=== PATIENT | female | born 1965 | race Caucasian/White ===

== ENCOUNTER → 2016-07-23 | Outpatient (CLI) | payer BC ==
--- NOTE | 2016-07-24 07:55 | MM ---
Reason for exam: screening (asymptomatic). Last mammogram was performed 1 year and 1 month ago. History: Patient is postmenopausal and has history of other cancer at age 33. Family history of breast cancer in grandmother at age 60. Retro-pectoral saline implants in both breasts, 1998. Taking estrogen for 9 years beginning at age 34. Physical Findings: A clinical breast exam by your physician is recommended on an annual basis and results should be correlated with mammographic findings. MG Screening Mammo Implant/CAD Bilateral CC, MLO, and ID view(s) were taken. Prior study comparison: June 28, 2015, bilateral MG screening mammo implant/CAD. May 28, 2014, bilateral MG diagnostic mammo w CAD [facility]. There are scattered fibroglandular densities. Implants are intact. No significant changes when compared with prior studies. ASSESSMENT: Negative, BI-RAD 1 RECOMMENDATION: Routine screening mammogram of both breasts.
== END | disposition home or self-care (01) ==
LOC: RADMAMWWP 09:28
PROVIDERS: ATTEND Obstetrics & Gynecology
DX: Z12.31 Encounter for screening mammogram for malignant neoplasm of breast (principal)

== ENCOUNTER → 2017-03-12 | Outpatient (CLI) | payer BC ==
--- NOTE | 2017-03-12 16:22 | CT ---
EXAMINATION TYPE: CT chest w con DATE OF EXAM: 03/12/2017 COMPARISON: 12/27/2009 HISTORY: Chest pain xfew months. 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 Prior on 12.27.09. CT DLP: 246.6 mGycm, Automated exposure control for dose reduction was used. CONTRAST: Performed injected with 100ml mL of Omnipaque 300. TECHNIQUE: Axial images were obtained at 5 mm thick sections. Reconstructed images are reviewed on [email or web address] computer in the coronal plane. FINDINGS: Portion of the thyroid visualized is normal. No suspicious lung nodules or focal infiltrates are present. Bilateral breast prostheses are present. No enlarged mediastinal or hilar adenopathy is evident. No axillary adenopathy is evident. Subcarin al and upper abdominal adenopathy is not evident. The ascending aorta diameter at the level of the ma in pulmonary artery is 2.9 cm. The main pulmonary artery diameter at the bifurcation is 1.[address] sections are obtained through the upper abdomen. Gallstones may be present. Small hiatal h ernia is present. IMPRESSIONS: 1. No suspicious adenopathy present within the [id number]. 2. Suspected cholelithiasis.
== END | disposition home or self-care (01) ==
LOC: RADCTMAIN 12:13
PROVIDERS: ATTEND Internal Medicine Hematology & Oncology
DX: Z08 Encounter for follow-up examination after completed treatment for malignant neoplasm (principal); Z85.72 Personal history of non-Hodgkin lymphomas; Z88.5 Allergy status to narcotic agent
CPT/HCPCS: 71260; Q9967

== ENCOUNTER → 2017-09-13 | Outpatient (CLI) | payer BC ==
--- NOTE | 2017-09-17 08:20 | MM ---
Reason for exam: screening (asymptomatic). Last mammogram was performed 1 year and 2 months ago. History: Patient is postmenopausal and has history of other cancer at age 33. Family history of breast cancer in grandmother at age 60. Retro-pectoral saline implants in both breasts, 1998. Taking estrogen for 9 years beginning at age 34. Physical Findings: A clinical breast exam by your physician is recommended on an annual basis and results should be correlated with mammographic findings. MG Screening Mammo Implant/CAD Bilateral CC, MLO, and ID view(s) were taken. Prior study comparison: July 23, 2016, bilateral MG screening mammo implant/CAD. June 28, 2015, bilateral MG screening mammo implant/CAD. There are scattered fibroglandular densities. Bilateral retropectoral silicone implants. No significant changes when compared with prior studies. ASSESSMENT: Negative, BI-RAD 1 RECOMMENDATION: Routine screening mammogram of both breasts in 1 year.
== END | disposition home or self-care (01) ==
LOC: RADMAMWWP 08:31
PROVIDERS: ATTEND Obstetrics & Gynecology
DX: Z12.31 Encounter for screening mammogram for malignant neoplasm of breast (principal); Z98.82 Breast implant status
CPT/HCPCS: 77067

== ENCOUNTER → 2018-10-28 | Outpatient (CLI) | payer BC ==
--- NOTE | 2018-10-29 14:04 | MM ---
Reason for exam: screening (asymptomatic). Last mammogram was performed 1 year and 1 month ago. History: Patient is postmenopausal and has history of other cancer at age 33. Family history of breast cancer in grandmother at age 60. Retro-pectoral saline implants in both breasts, 1998. Taking estrogen for 9 years beginning at age 34. Physical Findings: A clinical breast exam by your physician is recommended on an annual basis and results should be correlated with mammographic findings. MG Screening Mammo Implant/CAD Bilateral CC, MLO, and ID view(s) were taken. Prior study comparison: September 13, 2017, bilateral MG screening mammo implant/CAD. July 23, 2016, bilateral MG screening mammo implant/CAD. There are scattered fibroglandular densities. No suspicious abnormality. Bilateral prepectoral saline implants. No significant changes when compared with prior studies. ASSESSMENT: Negative, BI-RAD 1 RECOMMENDATION: Routine screening mammogram of both breasts in 1 year.
== END | disposition home or self-care (01) ==
LOC: RADMAMWWP 09:27
PROVIDERS: ATTEND Obstetrics & Gynecology
DX: Z12.31 Encounter for screening mammogram for malignant neoplasm of breast (principal); Z98.82 Breast implant status
CPT/HCPCS: 77067

== ENCOUNTER → 2019-10-30 | Outpatient (CLI) | payer BC ==
--- NOTE | 2019-11-03 08:43 | MM ---
Reason for exam: screening (asymptomatic). Last mammogram was performed 1 year ago. History: Patient is postmenopausal and has history of other cancer at age 33. Family history of breast cancer in grandmother at age 60. Retro-pectoral saline implants in both breasts, 1998. Taking estrogen for 9 years beginning at age 34. Physical Findings: A clinical breast exam by your physician is recommended on an annual basis and results should be correlated with mammographic findings. MG Screening Mammo Implant/CAD Bilateral CC, MLO, and ID view(s) were taken. Prior study comparison: October 28, 2018, bilateral MG screening mammo implant/CAD. September 13, 2017, bilateral MG screening mammo implant/CAD. Retropectoral implants. No significant changes when compared with prior studies. ASSESSMENT: Negative, BI-RAD 1 RECOMMENDATION: Routine screening mammogram of both breasts in 1 year.
== END | disposition home or self-care (01) ==
LOC: RADMAMWWP 14:52
PROVIDERS: ATTEND Obstetrics & Gynecology
DX: Z12.31 Encounter for screening mammogram for malignant neoplasm of breast (principal); Z80.3 Family history of malignant neoplasm of breast; Z98.82 Breast implant status
CPT/HCPCS: 77067

== ENCOUNTER → 2021-01-04 | Outpatient (CLI) | payer BC ==
--- NOTE | 2021-01-05 09:55 | MM ---
Reason for exam: screening (asymptomatic). Last mammogram was performed 1 year and 2 months ago. History: Patient is postmenopausal and has history of other cancer at age 33. Family history of breast cancer in grandmother at age 60. Retro-pectoral saline implants in both breasts, 1998. Taking estrogen for 9 years beginning at age 34. Physical Findings: A clinical breast exam by your physician is recommended on an annual basis and results should be correlated with mammographic findings. MG Screening Mammo Implant/CAD Bilateral CC, MLO, and ID view(s) were taken. Prior study comparison: October 30, 2019, bilateral MG screening mammo implant/CAD. October 28, 2018, bilateral MG screening mammo implant/CAD. There are scattered fibroglandular densities. There is no discrete abnormality. Bilateral implants are intact. No significant changes when compared with prior studies. ASSESSMENT: Negative, BI-RAD 1 RECOMMENDATION: Routine screening mammogram of both breasts in 1 year.
== END | disposition home or self-care (01) ==
LOC: RADMAMWWP 08:14
PROVIDERS: ATTEND Obstetrics & Gynecology
DX: Z12.31 Encounter for screening mammogram for malignant neoplasm of breast (principal)
CPT/HCPCS: 77067

== ENCOUNTER → 2021-06-03 | Outpatient (CLI) | payer BC ==
--- NOTE | 2021-06-04 08:04 | MR ---
EXAMINATION TYPE: MR liver wo/w con DATE OF EXAM: 06/03/2021 COMPARISON: CT chest abdomen and pelvis December 27, 2009. Outside abnormal ultrasound and/or report a re not available for direct comparison HISTORY: RUQ abdominal pain, abnormal ultrasound findings on diagnostic imaging, gallbladder removed 05-05-21. CONTRAST: Standard multiplanar, multisequence MRI departmental protocol images were obtained without contrast a nd with 8 mL intravenous Gadavist gadolinium contrast. Imaging performed of the abdomen focusing on the liver. FINDINGS: Liver: Liver shows diffuse signal dropout consistent with diffuse fatty infiltration. Liver size norm al. Gallbladder surgically absent. Susceptibility Artifact from cholecystectomy clips noted at the le sesar of the gallbladder fossa. No intrahepatic or extra hepatic biliary dilatation. Left hepatic lobe shows 1.5 x 1.0 cm benign thin-walled cyst. Remainder of liver shows no worrisome solid or cystic mas s. Other: Bilateral breast implants are redemonstrated. Lung bases remain clear. Spleen and pancreas lori ear within normal limits. No adrenal masses. No concerning renal mass or hydronephrosis seen bilatera lly. No suspicious greater than 1 cm abdominal adenopathy. No abnormal bowel dilatation. No intra-abd ominal ascites. No AAA. Osseous structures are intact. IMPRESSION: Diffuse fatty infiltration of liver. Incidental 1.5 cm benign-appearing thin-walled cyst left hepatic lobe. No biliary dilatation. No suspicious acute findings. If outside report and/or ultr asound study become available for comparison an addendum may be issued.
== END | disposition home or self-care (01) ==
LOC: RADMRIMAIN 11:15
PROVIDERS: ATTEND Nurse Practitioner Family
DX: R93.5 Abnormal findings on diagnostic imaging of other abdominal regions, including retroperitoneum (principal)
CPT/HCPCS: 74183; A9585

== ENCOUNTER → 2021-08-11 | Outpatient (CLI) | payer BC ==
--- NOTE | 2021-08-15 06:04 | PE ---
EXAMINATION TYPE: PET CT fusion skull to thigh DATE OF EXAM: 08/11/2021 COMPARISON: Low-dose lung screening CT June 20, 2021 and older studies. HISTORY: Abnormal CT, solitary pulmonary nodule TECHNIQUE: Following the intravenous administration of 10.5 mCi of F-18 FDG, whole body images are p erformed from the skull base to the midthigh. Images are reviewed on the computer in the coronal, ax ial, and sagittal planes. Reconstructed rotating images are created on independent workstation and r eviewed on the computer. A localization and attenuation correction CT is performed in conjunction w ith the PET scan. Blood glucose level equals 82. SCAN: Initial Scan FINDINGS: SKULL BASE AND NECK: No areas of abnormal hypermetabolic uptake. CHEST, MEDIASTINUM, AND HILAR REGION: Redemonstration of symmetric masslike thickening along the medi al aspect of the bilateral lung apices axial image 59, no abnormal hypermetabolic uptake at this leve l. Findings consistent with postinflammatory scarring. Finding was present back in 2017 CT. No areas of abnormal hypermetabolic uptake. ABDOMEN AND PELVIS: Nonspecific uptake in the right colon. No areas of abnormal hypermetabolic uptake . OSSEOUS STRUCTURES: No areas of abnormal hypermetabolic uptake OTHER CT: Bilateral breast implants are redemonstrated. Cholecystectomy clips are redemonstrated. Liver is diffusely low dense consistent with fatty infiltra tion. Lobulated contour to the uterus suggests underlying intrauterine fibroids. Few diverticula in t he sigmoid colon are present. Facet arthropathy lower lumbar spine is seen. IMPRESSION: No areas of abnormal hypermetabolic uptake to suggest malignancy.
== END | disposition home or self-care (01) ==
LOC: RADPETMAIN 13:35
PROVIDERS: ATTEND Nurse Practitioner Family
DX: R93.89 Abnormal findings on diagnostic imaging of other specified body structures (principal); R91.8 Other nonspecific abnormal finding of lung field
CPT/HCPCS: 78815; A9552

== ENCOUNTER → 2022-01-24 | Outpatient (CLI) | payer BC ==
--- NOTE | 2022-01-25 09:52 | MM ---
Reason for Exam: Screening (asymptomatic). Last mammogram was performed 1 year(s) and 1 month(s) ago. Patient History: Menarche at age 9. First Full-Term at age 21. Right ovary removed at age 25. Postmenopausal. Patient has history of breast feeding. Currently using Estrogen, beginning at age 34 for 9 years. 1999, Bilateral Implants. Maternal grandmother had breast cancer, age 60. Risk Values: Rebecca 5 year model risk: 1.3%. NCI Lifetime model risk: 7.6%. Prior Study Comparison: 06/28/2015 Bilateral Screening Mammogram, [facility]. 07/23/2016 Bilateral Screening Mammogram, [facility]. 09/13/2017 Bilateral Screening Mammogram, [facility]. 10/28/2018 Bilateral Screening Mammogram, [facility]. 10/30/2019 Bilateral Screening Mammogram, [facility]. 01/04/2021 Bilateral Screening Mammogram, [facility]. Tissue Density: There are scattered fibroglandular densities. Findings: Analyzed By CAD. There is no suspicious group of microcalcifications or new suspicious mass in either breast. Bilateral breast implants appear intact. No significant change from prior exams. Overall Assessment: Benign, BI-RAD 2 Management: Screening Mammogram of both breasts in 1 year. A clinical breast exam by your physician is recommended on an annual basis and results should be correlated with mammographic findings. Electronically signed and approved by: Irving Good D.O.
== END | disposition home or self-care (01) ==
LOC: RADMAMWWP 10:51
PROVIDERS: ATTEND Obstetrics & Gynecology
DX: Z12.31 Encounter for screening mammogram for malignant neoplasm of breast (principal); Z78.0 Asymptomatic menopausal state; Z80.3 Family history of malignant neoplasm of breast; Z90.721 Acquired absence of ovaries, unilateral
CPT/HCPCS: 77067

== ENCOUNTER → 2023-02-18 | Outpatient (CLI) | payer BC ==
--- NOTE | 2023-02-19 20:42 | MM ---
Reason for Exam: Screening (asymptomatic). Last mammogram was performed 1 year(s) and 1 month(s) ago. Patient History: Menarche at age 9. First Full-Term at age 21. Right ovary removed at age 25. Postmenopausal. Patient has history of breast feeding. Currently using Estrogen, beginning at age 34 for 9 years. Currently using Progesterone, starting at age 34. 1999, Bilateral Implants. Maternal grandmother had breast cancer, age 60. Risk Values: Rebecca 5 year model risk: 1.4%. NCI Lifetime model risk: 7.4%. Prior Study Comparison: 10/30/2019 Bilateral Screening Mammogram, [facility]. 01/04/2021 Bilateral Screening Mammogram, [facility]. 01/24/2022 Bilateral MG screening mammo implant/CAD, [facility]. Tissue Density: There are scattered fibroglandular densities. Findings: Analyzed By CAD. Retropectoral silicone implants are redemonstrated. There is no suspicious group of microcalcifications or new suspicious mass in either breast. Overall Assessment: Negative, BI-RAD 1 Management: Screening Mammogram of both breasts in 1 year. . Patient should continue monthly self-breast exams. A clinical breast exam by your physician is recommended on an annual basis. This exam should not preclude additional follow-up of suspicious palpable abnormalities. Note on Rebecca scores and lifetime risk: 1. A Rebecca score greater than 3% is considered moderate risk. If this is the case, consider specialist referral to assess eligibility for a risk reducing agent. 2. If overall lifetime risk for the development of breast cancer is 20% or higher, the patient may qualify for future screening with alternating mammogram and breast MRI. Electronically signed and approved by: Meliza Escamilla M.D. Radiologist
== END | disposition home or self-care (01) ==
LOC: RADMAMWWP 15:26
PROVIDERS: ATTEND Obstetrics & Gynecology
DX: Z12.31 Encounter for screening mammogram for malignant neoplasm of breast (principal); Z80.3 Family history of malignant neoplasm of breast; Z78.0 Asymptomatic menopausal state; Z98.82 Breast implant status
CPT/HCPCS: 77063; 77067